=== PATIENT | female | born 1995 | race Caucasian/White ===

== ENCOUNTER 2025-02-07 22:01 | Emergency (ER) | payer OTHER, SELFPAY ==
[2025-02-07 22:06] VITALS: BP 126/88; PULSE 73; RESP 18; TEMP 37; O2SAT 100
[2025-02-07] MEDS: OFLOXACIN 0.3% OPHTH SOLN 5 ML BTL 2 DROP RIGHT EYE (23:38)
--- NOTE | 2025-02-07 23:41 | ED_ITS ---
HPI - Eye Problem General Chief complaint: Eye Problems Stated complaint: cat scratched eye Time Seen by Provider: 02/07/25 22:15 Source: patient Mode of arrival: ambulatory Limitations: no limitations History of Present Illness HPI Narrative: Patient is a 29-year-old female who presents the ED with report of cat scratch right eye. Patient reports she was scratched by her cat this evening. Sustained abrasion to upper eyelid margin. Is unsure if she was scratched in her actual eye. Denies significant eye pain. Denies vision changes, photophobia, phonophobia, drainage. She does wear contacts and glasses. Tetanus is up-to-date. Related Data Allergies Allergy/AdvReac Type Severity Reaction Status Date / Time No Known Allergies Allergy Verified 02/07/25 23:38 Review of Systems Review of Systems: All systems reviewed & are unremarkable except as noted in HPI. All systems reviewed & are unremarkable except as noted in HPI and below Exam Narrative: GENERAL: Well appearing, well-nourished, non-toxic, in no acute distress. HEAD: Normocephalic, atraumatic. EYES: PERRLA/EOMI, R conjunctival injection along inferior conjunctiva below lower lid, near 8 oclock region from cornea. No chemosis, proptosis, hyphema. No drainage. Small abrasion along mid upper eyelid margin. No active bleeding. RESPIRATORY: Airway patent, respirations nonlabored. CARDIOVASCULAR: Regular rate and rhythm MUSCULOSKELETAL: Moves all extremities. No gross deformities. SKIN: Warm, dry, normal color. NEURO: A&O X3. Speech clear. PSYCHIATRIC: Appropriate mood and affect. Normal interaction. Course Vital Signs Vital signs: Vital Signs Temperature 98.6 F 02/07/25 22:06 Pulse Rate 73 02/07/25 22:06 Respiratory Rate 18 02/07/25 22:06 Blood Pressure 126/88 02/07/25 22:06 Pulse Oximetry 100 02/07/25 22:06 Temperature 98.6 F 02/07/25 22:06 Pulse Rate 69 02/07/25 23:57 Respiratory Rate 19 02/07/25 23:57 Blood Pressure 130/82 02/07/25 23:57 Pulse Oximetry 100 02/07/25 23:57 MDM - Eye Problem MDM Narrative Medical decision making narrative: Presented to ED with cat scratch to right eye. Right eyelid does have a small abrasion. There is an area of conjunctival injection below right eyelid. Patient is denying vision changes or significant eye pain. Visual acuity is intact and symmetric bilaterally. Fluorescein staining with Wood's lamp examination was performed and does show conjunctival abrasion along inferior conjunctiva and 8:00 a.m. region from cornea beneath lower eyelid. Will place patient on ofloxacin eyedrops for this. Will also cover for cat scratch with Augmentin. Tetanus is up-to-date. Cat is up-to-date on its vaccines. Patient otherwise safe for discharge home. Given return precautions. Recommended follow-up with ophthalmology as needed. Discharged in stable condition. Medical Records Attestation: I reviewed the patient's medical records. Discharge Plan Discharge Clinical Impression: Abrasion of right eyelid Qualifiers: Encounter type: initial encounter Qualified Code(s): S00.211A - Abrasion of right eyelid and periocular area, initial encounter Cat scratch of face Qualifiers: Encounter type: initial encounter Qualified Code(s): S00.81XA - Abrasion of other part of head, initial encounter Conjunctival abrasion Qualifiers: Encounter type: initial encounter Laterality: right Qualified Code(s): S05.01XA - Injury of conjunctiva and corneal abrasion without foreign body, right eye, initial encounter Patient Disposition: Home Condition: Stable Instructions: Antibiotic Form, Animal Bite (ED), Corneal Abrasion (ED) Additional Instructions: Utilize antibiotic eyedrops as prescribed. Take oral antibiotics as prescribed. Avoid rubbing or touching eye. Follow-up with your eye doctor for further evaluation if needed. Return to the ED for new or worsening concerns. Patient Language: Divehi Prescriptions: New ofloxacin 0.3 % drops 2 drp EACH EYE QID 5 Days Qty: 5 0RF amoxicillin-pot clavulanate 875-125 mg tablet 1 tablet PO Q12H 7 Days Qty: 14 0RF Follow-up/Referrals: PHYSICIAN,OPHTHALMOLOGY TECHNICIAN [Primary Care Provider, Internal Medicine] Time of Disposition: 23:47
[2025-02-07 23:56] VITALS: BP 130/82; PULSE 69; RESP 19; O2SAT 100
[2025-02-07 23:57] VITALS: BP 130/82; PULSE 69; RESP 19; O2SAT 100
== END 2025-02-08 00:01 | disposition home or self-care (01) ==
PROVIDERS: Emergency Provider Physician Assistant
DX: S00.211A Abrasion of right eyelid and periocular area, initial encounter (principal); S05.01XA Injury of conjunctiva and corneal abrasion without foreign body, right eye, initial encounter; W55.03XA Scratched by cat, initial encounter
CPT/HCPCS: 99283; A9270